=== PATIENT | male | born 1960 | race Caucasian/White ===

== ENCOUNTER → 2016-11-22 | Outpatient (REF) | payer OTHER ==
[2016-11-22 18:38] LABS: ALBUMIN 3.7 GM/DL (3.2-5.2); ALBUMIN/GLOBULIN RATIO 1.16 (1.00-1.93); ALKALINE PHOSPHATASE 64 U/L (45-117); ALT/SGPT 35 U/L (12-78); ANION GAP 8 MEQ/L (8-16); AST/SGOT 17 U/L (15-37); BILIRUBIN,TOTAL 0.5 MG/DL (0.2-1.0); BLOOD UREA NITROGEN 10 MG/DL (7-18); CALCIUM LEVEL 8.3 MG/DL (8.5-10.1); CARBON DIOXIDE LEVEL 29 MEQ/L (21-32); CHLORIDE LEVEL 105 MEQ/L (98-107); CHOLESTEROL LEVEL 223 MG/DL (<200); CREATININE FOR GFR 0.72 MG/DL (0.70-1.30); GLOMERULAR FILTRATION RATE > 60.0 (>56); GLUCOSE, FASTING 150 MG/DL (70-105); POTASSIUM SERUM 4.4 MEQ/L (3.5-5.1); SODIUM LEVEL 142 MEQ/L (136-145); TOTAL PROTEIN 6.9 GM/DL (6.4-8.2); TRIGLYCERIDES LEVEL 152 MG/DL (<150)
[2016-11-22 18:43] LABS: BASO # 0.1 K/mm3 (0.0-0.2); BASO % 0.9 % (0.0-1.0); EOS # 0.2 K/mm3 (0.0-0.50); EOS % 2.9 % (0.0-3.0); LARGE UNSTAINED CELL # 0.1 K/mm3 (0.0-0.4); LARGE UNSTAINED CELL % 0.9 % (0.0-4.0); LYMPH # 1.7 K/mm3 (1.5-4.5); LYMPH % 18.7 % (24.0-44.0); MEAN CORPUSCULAR HEMOGLOBIN 28.6 pg (27.0-33.0); MEAN CORPUSCULAR HGB CONC 32.2 g/dl (32.0-36.5); MEAN CORPUSCULAR VOLUME 88.8 fl (80.0-96.0); MONO # 0.4 K/mm3 (0.0-0.8); MONO % 4.4 % (0.0-5.0); NEUTROPHILS # 6.3 K/mm3 (1.8-7.7); NEUTROPHILS % 72.1 % (36.0-66.0); PLATELET COUNT, AUTOMATED 205 k/mm3 (150-450); WHITE BLOOD COUNT 8.7 K/mm3 (4.0-10.0)
== END ==
LOC: M SFHCADAM 08:03
PROVIDERS: ATTEND Family Medicine
DX: Z00.00 Encounter for general adult medical examination without abnormal findings (principal)

== ENCOUNTER → 2016-11-28 | Outpatient (REF) | payer OTHER ==
[2016-12-03 00:06] LABS: Lyme Disease IgG/IgM Antibodie <0.91 ISR (0.00-0.90); Lyme Disease IgM Ab Quantitati <0.80 index (0.00-0.79)
== END ==
LOC: M SFHCADAM 09:17
PROVIDERS: ATTEND Family Medicine
DX: R73.9 Hyperglycemia, unspecified (principal); M25.50 Pain in unspecified joint

== ENCOUNTER → 2016-12-14 | Outpatient (CLI) | payer OTHER ==
--- NOTE | 2016-12-16 20:32 | SLEEPCENT ---
DATE OF PROCEDURE: 12/14/2016 REFERRING PHYSICIAN: Shandra Valenzuela Nocturnal polysomnography was performed due to concern for the obstructive sleep apnea syndrome in this patient with a history of excessive somnolence and snoring with comorbidities of hypertension. 6 hours and 42 minutes of data were reviewed. There were 346 minutes of sleep identified. Sleep latency was prolonged at 22 minutes. Rapid eye movement (REM) latency normal at 83 minutes. Sleep architecture showed poor progression and fragmentation. There were three REM periods noted. Overall sleep efficiency was 87.3%. The electrocardiogram showed a sinus rhythm with an average heart rate of 80 beats per minute. Rate variability was seen surrounding respiratory events. Rate ranged 65 to 95 beats per minute. EEG showed reasonably normal waveforms for awake and sleep. No focal events were identified. There were 337 respiratory events identified of 10 seconds in duration or greater for an apnea/hypopnea index of 58.4. The events were primarily obstructive, not exclusive to sleep stage nor body posture. Arousals from respiratory events occurred 27.5 times per hour. Oxygen desaturations were seen into the 70s. Remaining measures of sleep physiology were normal. IMPRESSION: Severe obstructive sleep apnea syndrome (G47.33). Apnea/hypopnea index of 58.4. RECOMMENDATION: The patient should be encouraged to return to the sleep disorder center for pressure therapy at his earliest convenience. In the interim, alcohol and sedative avoidance should be practiced and caution exercised during the operation of motor vehicles.
== END ==
LOC: M SLEEP 20:00
PROVIDERS: ATTEND Nurse Practitioner Adult Health
DX: G47.30 Sleep apnea, unspecified (principal)

== ENCOUNTER → 2016-12-30 | Outpatient (CLI) | payer OTHER ==
--- NOTE | 2017-01-06 07:56 | SLEEPCENT ---
DATE OF STUDY: 12/30/2016 Nocturnal polysomnography was performed for the titration of pressure therapy in this patient with obstructive sleep apnea syndrome, apnea-hypopnea index of 58. For testing, a [employer]Med Quattro full face mask of medium size was used. 5 cm of water pressure were applied to the circuit and the lights were extinguished. 7 hours and 21 minutes of data were reviewed. There were 355 minutes of sleep identified. Sleep latency was prolonged at 20 minutes. REM latency was short at 52 minutes. Sleep architecture improved with pressure therapy. There were 3 rapid eye movement (REM) periods appreciated. Overall sleep efficiency was 81%. EKG showed a sinus rhythm with an average heart rate of 76 beats per minute. EEG showed normal wave forms for wake and sleep. Respiratory events were fully palliated with CPAP at a pressure of +11. Some limb activity persisted which did improve on optimal pressure therapy. Limb movement arousal index was borderline at 6.8. IMPRESSION: Obstructive sleep apnea syndrome (G47.33). RECOMMENDATION: Nightly use of pressure therapy 11 cm of water.
== END ==
LOC: M SLEEP 19:49
PROVIDERS: ATTEND Nurse Practitioner Adult Health
DX: G47.33 Obstructive sleep apnea (adult) (pediatric) (principal)

== ENCOUNTER → 2017-03-26 | Outpatient (REF) | payer OTHER ==
[2017-03-26 19:33] LABS: ESTIMATED AVERAGE GLUCOSE 146 MG/DL (60-110); HEMOGLOBIN A1c 6.7 %
== END ==
LOC: M SFHCADAM 18:53
DX: E11.69 Type 2 diabetes mellitus with other specified complication (principal)
CPT/HCPCS: 83036

== ENCOUNTER → 2017-06-13 | Outpatient (REF) | payer OTHER ==
[2017-06-13 18:16] LABS: ESTIMATED AVERAGE GLUCOSE 131 MG/DL (60-110); HEMOGLOBIN A1c 6.2 %
[2017-06-13 18:24] LABS: MALB URINE SIEMENS 15.6 MG/L; MAU/CREAT RATIO 7.8 MCG/MG (0.0-30.0)
== END ==
LOC: M LAB REF 17:40 → M LABDRWAD 17:40
DX: E11.69 Type 2 diabetes mellitus with other specified complication (principal)

== ENCOUNTER → 2017-09-14 | Outpatient (REF) | payer OTHER ==
[2017-09-14 13:35] LABS: ESTIMATED AVERAGE GLUCOSE 137 MG/DL (60-110); HEMOGLOBIN A1c 6.4 %
== END ==
LOC: M SFHCADAM 08:09
DX: E11.69 Type 2 diabetes mellitus with other specified complication (principal)

== ENCOUNTER → 2017-10-07 | Outpatient (CLI) | payer OTHER | LOC: M ADAMS 15:20 | DX: M25.541 Pain in joints of right hand (principal) | CPT/HCPCS: 73130 ==

== ENCOUNTER → 2018-01-08 | Outpatient (REF) | payer OTHER ==
[2018-01-08 19:29] LABS: ESTIMATED AVERAGE GLUCOSE 131 MG/DL (60-110); HEMOGLOBIN A1c 6.2 %
[2018-01-08 20:10] LABS: CHOLESTEROL LEVEL 118 MG/DL (<200); CHOLESTEROL RISK RATIO 3.806 (<5); HDL CHOLESTEROL 31 MG/DL (>40); LDL CHOLESTEROL 68 MG/DL (<100); NON-HDL-C 87 MG/DL; TRIGLYCERIDES LEVEL 97 MG/DL (<150)
== END ==
LOC: M SFHCADAM 14:43
DX: E11.69 Type 2 diabetes mellitus with other specified complication (principal)

== ENCOUNTER → 2018-04-22 | Outpatient (REF) | payer OTHER ==
[2018-04-22 14:16] LABS: HEMOGLOBIN A1c 6.7 %
== END ==
LOC: M SFHCADAM 08:05
PROVIDERS: ATTEND Family Medicine
DX: E11.69 Type 2 diabetes mellitus with other specified complication (principal)

== ENCOUNTER → 2018-07-29 | Outpatient (REF) | payer OTHER ==
[2018-07-29 20:19] LABS: HEMOGLOBIN A1c 6.7 %
== END ==
LOC: M SFHCADAM 15:53
PROVIDERS: ATTEND Family Medicine
DX: E11.69 Type 2 diabetes mellitus with other specified complication (principal)

== ENCOUNTER → 2018-10-06 | Outpatient (REF) | payer OTHER ==
[2018-10-06 12:52] LABS: ALBUMIN 3.7 GM/DL (3.2-5.2); ALT/SGPT 35 U/L (12-78); BILIRUBIN,TOTAL 0.4 MG/DL (0.2-1.0); BLOOD UREA NITROGEN 18 MG/DL (7-18); CALCIUM LEVEL 9.3 MG/DL (8.5-10.1); CARBON DIOXIDE LEVEL 31 MEQ/L (21-32); CHLORIDE LEVEL 107 MEQ/L (98-107); CREATININE FOR GFR 0.84 MG/DL (0.70-1.30); GLOMERULAR FILTRATION RATE > 60.0 (>56); GLUCOSE, FASTING 124 MG/DL (70-100); POTASSIUM SERUM 4.7 MEQ/L (3.5-5.1); SODIUM LEVEL 143 MEQ/L (136-145); TOTAL PROTEIN 6.8 GM/DL (6.4-8.2)
[2018-10-06 13:44] LABS: HEMOGLOBIN A1c 6.4 %
== END ==
LOC: M SFHCADAM 07:59
PROVIDERS: ATTEND Family Medicine
DX: E11.69 Type 2 diabetes mellitus with other specified complication (principal); I10 Essential (primary) hypertension

== ENCOUNTER → 2018-11-25 | Outpatient (CLI) | payer OTHER ==
[2018-11-25 20:10] LABS: ALBUMIN 3.8 GM/DL (3.2-5.2); ALT/SGPT 35 U/L (12-78); BILIRUBIN,DIRECT < 0.1 MG/DL (0.0-0.2); BILIRUBIN,TOTAL 0.3 MG/DL (0.2-1.0); BLOOD UREA NITROGEN 15 MG/DL (7-18); CALCIUM LEVEL 9.6 MG/DL (8.5-10.1); CARBON DIOXIDE LEVEL 32 MEQ/L (21-32); CHLORIDE LEVEL 107 MEQ/L (98-107); CREATININE FOR GFR 0.75 MG/DL (0.70-1.30); GLOMERULAR FILTRATION RATE > 60.0 (>56); GLUCOSE, FASTING 97 MG/DL (70-100); PHOSPHORUS LEVEL 3.3 MG/DL (2.5-4.9); POTASSIUM SERUM 4.7 MEQ/L (3.5-5.1); SODIUM LEVEL 142 MEQ/L (136-145)
[2018-11-25 20:14] LABS: HEMATOCRIT 46.8 % (42.0-52.0); HEMOGLOBIN 15.1 g/dl (13.5-17.5); MEAN CORPUSCULAR HEMOGLOBIN 29.4 pg (27.0-33.0); MEAN CORPUSCULAR HGB CONC 32.3 g/dl (32.0-36.5); MEAN CORPUSCULAR VOLUME 91.1 fl (80.0-96.0); PLATELET COUNT, AUTOMATED 222 10^3/uL (150-450); RED BLOOD COUNT 5.14 10^6/uL (4.30-6.10); WHITE BLOOD COUNT 9.5 10^3/uL (4.0-10.0)
== END ==
LOC: M LABDRWAD 12:04
PROVIDERS: ATTEND Podiatrist Foot & Ankle Surgery
DX: Z51.81 Encounter for therapeutic drug level monitoring (principal); Z79.899 Other long term (current) drug therapy; B35.1 Tinea unguium

== ENCOUNTER → 2019-01-19 | Outpatient (REF) | payer OTHER ==
[2019-01-19 13:11] LABS: HEMATOCRIT 45.3 % (42.0-52.0); HEMOGLOBIN 14.7 g/dl (13.5-17.5); MEAN CORPUSCULAR HEMOGLOBIN 28.8 pg (27.0-33.0); MEAN CORPUSCULAR HGB CONC 32.5 g/dl (32.0-36.5); MEAN CORPUSCULAR VOLUME 88.6 fl (80.0-96.0); PLATELET COUNT, AUTOMATED 209 10^3/uL (150-450); RED BLOOD COUNT 5.11 10^6/uL (4.30-6.10); WHITE BLOOD COUNT 7.6 10^3/uL (4.0-10.0)
[2019-01-19 13:34] LABS: ALBUMIN 3.6 GM/DL (3.2-5.2); ALT/SGPT 33 U/L (12-78); BILIRUBIN,DIRECT < 0.1 MG/DL (0.0-0.2); BILIRUBIN,TOTAL 0.4 MG/DL (0.2-1.0); BLOOD UREA NITROGEN 18 MG/DL (7-18); CALCIUM LEVEL 8.8 MG/DL (8.5-10.1); CARBON DIOXIDE LEVEL 28 MEQ/L (21-32); CHLORIDE LEVEL 106 MEQ/L (98-107); CREATININE FOR GFR 0.88 MG/DL (0.70-1.30); GLOMERULAR FILTRATION RATE > 60.0 (>56); GLUCOSE, FASTING 141 MG/DL (70-100); PHOSPHORUS LEVEL 3.1 MG/DL (2.5-4.9); SODIUM LEVEL 141 MEQ/L (136-145); TOTAL PROTEIN 6.7 GM/DL (6.4-8.2)
== END ==
LOC: M LABDRWAD 12:52
PROVIDERS: ATTEND Podiatrist Foot & Ankle Surgery
DX: B35.1 Tinea unguium (principal); Z79.899 Other long term (current) drug therapy

== ENCOUNTER → 2019-04-05 | Outpatient (REF) | payer OTHER ==
[2019-04-05 14:18] LABS: HEMOGLOBIN A1c 6.4 %
== END ==
LOC: M SFHCADAM 08:28
PROVIDERS: ATTEND Family Medicine
DX: E11.69 Type 2 diabetes mellitus with other specified complication (principal)

== ENCOUNTER → 2019-11-29 | Outpatient (REF) | payer OTHER ==
[2019-11-29 13:45] LABS: ALT/SGPT 38 U/L (12-78); BILIRUBIN,TOTAL 0.3 MG/DL (0.2-1.0); BLOOD UREA NITROGEN 14 MG/DL (7-18); CALCIUM LEVEL 9.6 MG/DL (8.5-10.1); CARBON DIOXIDE LEVEL 32 MEQ/L (21-32); CHLORIDE LEVEL 106 MEQ/L (98-107); CREATININE FOR GFR 0.77 MG/DL (0.70-1.30); GLOMERULAR FILTRATION RATE > 60.0 (>56); GLUCOSE, FASTING 133 MG/DL (70-100); POTASSIUM SERUM 4.8 MEQ/L (3.5-5.1); SODIUM LEVEL 139 MEQ/L (136-145); TRIGLYCERIDES LEVEL 98 MG/DL (<150)
[2019-11-29 13:46] LABS: ALBUMIN 3.5 GM/DL (3.2-5.2); CHOLESTEROL LEVEL 148 MG/DL (<200); CHOLESTEROL RISK RATIO 4.111 (<5); HDL CHOLESTEROL 36 MG/DL (>40); LDL CHOLESTEROL 92 MG/DL (<100); NON-HDL-C 112 MG/DL; TOTAL PROTEIN 6.6 GM/DL (6.4-8.2)
[2019-11-29 18:14] LABS: HEMOGLOBIN A1c 6.4 %
== END ==
LOC: M LABDRWAD 12:54
PROVIDERS: ATTEND Family Medicine
DX: E78.5 Hyperlipidemia, unspecified (principal); E11.9 Type 2 diabetes mellitus without complications; I10 Essential (primary) hypertension

== ENCOUNTER → 2020-02-13 | Outpatient (CLI) | payer SELFPAY | LOC: M LABSMTC 12:05 | PROVIDERS: ATTEND Pediatrics | DX: Z20.828 Contact with and (suspected) exposure to other viral communicable diseases (principal) ==

== ENCOUNTER → 2020-04-12 | Outpatient (REF) | payer OTHER ==
[2020-04-12 14:53] LABS: ALBUMIN 3.5 GM/DL (3.2-5.2); ALT/SGPT 44 U/L (12-78); BILIRUBIN,TOTAL 0.4 MG/DL (0.2-1.0); BLOOD UREA NITROGEN 15 MG/DL (7-18); CALCIUM LEVEL 9.3 MG/DL (8.5-10.1); CARBON DIOXIDE LEVEL 32 MEQ/L (21-32); CHLORIDE LEVEL 106 MEQ/L (98-107); CREATININE FOR GFR 0.78 MG/DL (0.70-1.30); GLOMERULAR FILTRATION RATE > 60.0 (>56); GLUCOSE, FASTING 131 MG/DL (70-100); POTASSIUM SERUM 4.7 MEQ/L (3.5-5.1); SODIUM LEVEL 141 MEQ/L (136-145); TOTAL PROTEIN 6.6 GM/DL (6.4-8.2)
[2020-04-12 15:04] LABS: MALB URINE SIEMENS 11.4 MG/L; MAU/CREAT RATIO 5.8 MCG/MG (0.0-30.0)
[2020-04-12 16:01] LABS: HEMOGLOBIN A1c 6.6 %
== END ==
LOC: M SFHCADAM 08:50
PROVIDERS: ATTEND Family Medicine
DX: I10 Essential (primary) hypertension (principal); E11.69 Type 2 diabetes mellitus with other specified complication

== ENCOUNTER → 2020-05-14 | Outpatient (CLI) | payer SELFPAY | LOC: M LABSMTC 09:56 | PROVIDERS: ATTEND Pediatrics | DX: Z11.52 Encounter for screening for COVID-19 (principal) ==

== ENCOUNTER → 2020-05-24 | Outpatient (CLI) | payer SELFPAY | LOC: M LABSMTC 09:52 | PROVIDERS: ATTEND Pediatrics | DX: Z20.822 Contact with and (suspected) exposure to COVID-19 (principal) ==

== ENCOUNTER → 2020-09-14 | Outpatient (CLI) | payer OTHER | LOC: M ADAMS 14:26 | PROVIDERS: ATTEND Family Medicine | DX: M25.561 Pain in right knee (principal) ==

== ENCOUNTER → 2020-10-05 | Outpatient (CLI) | payer OTHER ==
--- NOTE | 2020-10-05 16:42 | REP ---
INDICATION: PAIN IN RT KNEE. COMPARISON: Comparison knee radiographs September 14, 2020.. TECHNIQUE: Axial, coronal, and sagittal imaging planes utilized. T1, proton density and T2 weighted scans are included with without fat saturation. FINDINGS: Cortical and medullary bone signal intensity are normal. No occult fracture is seen. There is a small amount of joint fluid. No Kamara's cyst is appreciated. Medial and lateral patellar pattern hand retinacular structures are intact. The quadriceps and patellar tendons appear intact. There is no evidence of ACL or PCL tear. No medial or lateral collateral ligament disruption is appreciated. On axial T2 weighted scans, there is mild to moderate chondromalacia in the central patella with a subtle fraying of the articular cartilage. No full-thickness articular cartilage defect is seen. Trochlear articular cartilage is unremarkable. There is no evidence of medial or lateral meniscus tear. 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 Small joint effusion. Otherwise negative. <Electronically signed by Deo Carey > 10/05/20 [id number]
== END ==
LOC: M PLAIMG 13:13
PROVIDERS: ATTEND Orthopaedic Surgery
DX: M94.261 Chondromalacia, right knee (principal)

== ENCOUNTER → 2020-10-31 | Outpatient (REF) | payer OTHER ==
[2020-10-31 13:11] LABS: HEMOGLOBIN A1c 6.7 %
[2020-10-31 13:25] LABS: ALBUMIN 3.6 GM/DL (3.2-5.2); ALT/SGPT 37 U/L (12-78); BILIRUBIN,TOTAL 0.4 MG/DL (0.2-1.0); BLOOD UREA NITROGEN 13 MG/DL (7-18); CALCIUM LEVEL 9.5 MG/DL (8.5-10.1); CARBON DIOXIDE LEVEL 30 MEQ/L (21-32); CHLORIDE LEVEL 110 MEQ/L (98-107); CREATININE FOR GFR 0.68 MG/DL (0.70-1.30); GLOMERULAR FILTRATION RATE > 60.0 (>56); GLUCOSE, FASTING 117 MG/DL (70-100); POTASSIUM SERUM 5.1 MEQ/L (3.5-5.1); SODIUM LEVEL 142 MEQ/L (136-145); TOTAL PROTEIN 6.8 GM/DL (6.4-8.2)
== END ==
LOC: M SFHCADAM 10:52
PROVIDERS: ATTEND Family Medicine
DX: E11.69 Type 2 diabetes mellitus with other specified complication (principal)

== ENCOUNTER → 2021-09-02 | Outpatient (REF) | payer OTHER ==
[2021-09-02 14:28] LABS: ALBUMIN 3.8 GM/DL (3.2-5.2); ALT/SGPT 35 U/L (12-78); BILIRUBIN,TOTAL 0.5 MG/DL (0.2-1.0); BLOOD UREA NITROGEN 12 MG/DL (7-18); CARBON DIOXIDE LEVEL 28 MEQ/L (21-32); CHLORIDE LEVEL 107 MEQ/L (98-107); CHOLESTEROL LEVEL 138 MG/DL (<200); CREATININE FOR GFR 0.87 MG/DL (0.70-1.30); GLOMERULAR FILTRATION RATE > 60.0 (>56); GLUCOSE, FASTING 160 MG/DL (70-100); HDL CHOLESTEROL 30 MG/DL (>40); LDL CHOLESTEROL 94 MG/DL (<100); NON-HDL-C 108 MG/DL; POTASSIUM SERUM 5.1 MEQ/L (3.5-5.1); SODIUM LEVEL 140 MEQ/L (136-145); TRIGLYCERIDES LEVEL 72 MG/DL (<150)
== END ==
LOC: M SFHCADAM 07:35
PROVIDERS: ATTEND Family Medicine
DX: E11.69 Type 2 diabetes mellitus with other specified complication (principal); E78.2 Mixed hyperlipidemia

== ENCOUNTER → 2022-04-02 | Outpatient (REF) | payer OTHER ==
[2022-04-02 13:58] LABS: ALBUMIN 3.7 G/DL (3.2-5.2); ALKALINE PHOSPHATASE 72 U/L (46-116); ALT/SGPT 27 U/L (7.0-40); AST/SGOT 16 U/L (<34); BILIRUBIN,TOTAL 0.4 MG/DL (0.3-1.2); BLOOD UREA NITROGEN 13 MG/DL (9-23); CALCIUM LEVEL 8.9 MG/DL (8.3-10.6); CARBON DIOXIDE LEVEL 28 MMOL/L (20-31); CHLORIDE LEVEL 105 MMOL/L (98-107); CREATININE FOR GFR 0.73 MG/DL (0.70-1.30); GLOMERULAR FILTRATION RATE > 60.0 (>49); GLUCOSE, FASTING 142 MG/DL (74-106); POTASSIUM SERUM 4.5 MMOL/L (3.5-5.1); SODIUM LEVEL 138 MMOL/L (136-145); TOTAL PROTEIN 6.3 G/DL (5.7-8.2)
== END ==
LOC: M SFHCADAM 09:32
PROVIDERS: ATTEND Family Medicine
DX: E11.69 Type 2 diabetes mellitus with other specified complication (principal)

== ENCOUNTER → 2023-04-07 | Outpatient (REF) | payer OTHER ==
[2023-04-07 13:38] LABS: ALBUMIN 3.6 G/DL (3.2-5.2); ALKALINE PHOSPHATASE 69 U/L (46-116); ALT/SGPT 32 U/L (7.0-40); AST/SGOT 14 U/L (<34); BILIRUBIN,TOTAL 0.5 MG/DL (0.3-1.2); BLOOD UREA NITROGEN 14 MG/DL (9-23); CALCIUM LEVEL 9.2 MG/DL (8.3-10.6); CARBON DIOXIDE LEVEL 31 MMOL/L (20-31); CHLORIDE LEVEL 110 MMOL/L (98-107); CREATININE FOR GFR 0.72 MG/DL (0.70-1.30); GLOMERULAR FILTRATION RATE > 60.0 (>49); GLUCOSE, FASTING 143 MG/DL (74-106); POTASSIUM SERUM 5.3 MMOL/L (3.5-5.1); SODIUM LEVEL 142 MMOL/L (136-145); TOTAL PROTEIN 6.2 G/DL (5.7-8.2)
[2023-04-07 13:50] LABS: HEMOGLOBIN A1c 6.7 % (4.0-6.0)
== END ==
LOC: M SFHCADAM 08:14
PROVIDERS: ATTEND Family Medicine
DX: E11.69 Type 2 diabetes mellitus with other specified complication (principal)

== ENCOUNTER → 2023-10-12 | Outpatient (REF) | payer OTHER ==
[2023-10-12 13:57] LABS: CREATININE, URINE 146.5 MG/DL
[2023-10-12 13:58] LABS: MALB URINE SIEMENS < 3.0 MG/L
[2023-10-12 14:02] LABS: ALKALINE PHOSPHATASE 64 U/L (46-116); ALT/SGPT 29 U/L (7.0-40); AST/SGOT 13 U/L (<34); BILIRUBIN,TOTAL 0.6 MG/DL (0.3-1.2); BLOOD UREA NITROGEN 17 MG/DL (9-23); CALCIUM LEVEL 9.3 MG/DL (8.3-10.6); CARBON DIOXIDE LEVEL 30 MMOL/L (20-31); CHLORIDE LEVEL 105 MMOL/L (98-107); CREATININE FOR GFR 0.71 MG/DL (0.70-1.30); GLOMERULAR FILTRATION RATE > 60.0 (>49); GLUCOSE, FASTING 135 MG/DL (74-106); HEMOGLOBIN A1c 6.3 % (4.0-6.0); POTASSIUM SERUM 5.3 MMOL/L (3.5-5.1); SODIUM LEVEL 140 MMOL/L (136-145); TOTAL PROTEIN 6.7 G/DL (5.7-8.2)
== END ==
LOC: M SFHCADAM 09:22
PROVIDERS: ATTEND Family Medicine
DX: E11.69 Type 2 diabetes mellitus with other specified complication (principal)

== ENCOUNTER → 2024-04-11 | Outpatient (REF) | payer OTHER ==
[2024-04-11 16:06] LABS: HEMOGLOBIN A1c 6.4 % (4.0-6.0)
[2024-04-11 16:17] LABS: ALBUMIN 3.8 G/DL (3.2-5.2); ALKALINE PHOSPHATASE 64 U/L (40-129); ALT/SGPT 36 U/L (7.0-40); AST/SGOT 15 U/L (<34); BILIRUBIN,TOTAL 0.5 MG/DL (0.3-1.2); BLOOD UREA NITROGEN 16 MG/DL (9-23); CALCIUM LEVEL 9.8 MG/DL (8.3-10.6); CARBON DIOXIDE LEVEL 28 MMOL/L (20-31); CHLORIDE LEVEL 107 MMOL/L (98-107); CHOLESTEROL LEVEL 119 MG/DL (<200); CHOLESTEROL RISK RATIO 4.42 (<5); CREATININE FOR GFR 0.75 MG/DL (0.70-1.30); GLOMERULAR FILTRATION RATE > 60.0 (>49); GLUCOSE, FASTING 120 MG/DL (74-106); HDL CHOLESTEROL 26.9 MG/DL (>40); LDL CHOLESTEROL 78.5 MG/DL (<100); NON-HDL-C 92.1 MG/DL; POTASSIUM SERUM 5.3 MMOL/L (3.5-5.1); SODIUM LEVEL 143 MMOL/L (136-145); TOTAL PROTEIN 6.9 G/DL (5.7-8.2); TRIGLYCERIDES LEVEL 68 MG/DL (<150)
== END ==
LOC: M SFHCADAM 08:12
PROVIDERS: ATTEND Family Medicine
DX: E78.2 Mixed hyperlipidemia (principal); E11.69 Type 2 diabetes mellitus with other specified complication

== ENCOUNTER → 2024-12-07 | Outpatient (REF) | payer OTHER ==
[2024-12-07 15:02] LABS: ALT/SGPT 29 U/L (7.0-40); AST/SGOT 16 U/L (<34); CALCIUM LEVEL 9.1 MG/DL (8.3-10.6); CARBON DIOXIDE LEVEL 29 MMOL/L (20-31); CHLORIDE LEVEL 105 MMOL/L (98-107); CREATININE FOR GFR 0.70 MG/DL (0.70-1.30); GLOMERULAR FILTRATION RATE > 90.0 (>49); POTASSIUM SERUM 4.9 MMOL/L (3.5-5.1); SODIUM LEVEL 139 MMOL/L (136-145)
[2024-12-07 15:34] LABS: ESTIMATED AVERAGE GLUCOSE 143.0 MG/DL (60-110)
== END ==
LOC: M SFHCADAM 08:55
PROVIDERS: ATTEND Family Medicine
DX: E11.69 Type 2 diabetes mellitus with other specified complication (principal)

== ENCOUNTER → 2024-12-12 | Outpatient (REF) | payer OTHER ==
[2024-12-12 13:49] LABS: BASO # 0.1 10^3/uL (0.0-0.2); BASO % 1.2 % (0.0-1.0); EOS # 0.3 10^3/uL (0.0-0.5); EOS % 3.1 % (0.0-3.0); LYMPH # 1.7 10^3/uL (1.5-5.0); LYMPH % 18.5 % (24.0-44.0); MONO # 0.5 10^3/uL (0.0-0.8); MONO % 5.4 % (2.0-8.0); NEUTROPHILS # 6.6 10^3/uL (1.5-8.5); NEUTROPHILS % 71.3 % (36.0-66.0); PLATELET COUNT, AUTOMATED 219 10^3/uL (150-450)
[2024-12-12 14:35] LABS: CREATININE, URINE 60.9 MG/DL; MALB URINE SIEMENS < 3.0 MG/L
== END ==
LOC: M SFHCADAM 10:33
PROVIDERS: ATTEND Family Medicine
DX: Z01.818 Encounter for other preprocedural examination (principal); E11.69 Type 2 diabetes mellitus with other specified complication